=== PATIENT | male | born 1950 | race Caucasian/White ===

== ENCOUNTER 2016-12-23 15:33 | Emergency (ER) | payer MEDICARE ==
[~2016-12-23] VITALS: Ht 170.2 cm; Wt 82.0 kg
[~2016-12-23 15:33] MED LIST: CLON-352 PO; ENAL2.5; METO25 PO
[2016-12-23 15:40] VITALS: BP 155/95; PULSE 67; RESP 15; TEMP 98.4; O2SAT 97
--- NOTE | 2016-12-23 15:52 | PD ---
HPI . attacked by a hawk Chief Complaint: Skin Problem Time Seen by Provider: 15:52 Travel History International Travel<30 days: No Contact w/Intl Traveler<30days: No Traveled to known affect area: No History of Present Illness HPI 66-year-old male with past medical history of hypertension, coronary artery disease with stent placement here after being attacked by a hawk. Patient was walking by the [employer] and a hawk swooped down and scratched his head. He has about 3 scratches in his scalp. They are not actual puncture wounds. He is not up to date on his tetanus. He has no other complaints. [facility] Past Medical History Hypertension: Yes Past Surgical History Coronary Stent: Yes (2002) Social History Alcohol Use: Yes Tobacco Use: No Substance Use: No Allergies-Medications (Allergen,Severity, Reaction): Coded Allergies: No Known Allergies (Unverified , 12/23/16) Reported Meds & Prescriptions Reported Meds & Active Scripts Active Bactrim DS (Sulfamethoxazole-Trimethoprim) 800-160 Mg Tab 1 Tab PO BID Reported Fish Oil ([place]-3 Fatty Acids) 1,000 Mg Cap Amlodipine (Amlodipine Besylate) 5 Mg Tab 5 Mg PO DAILY [monopril] Plavix (Clopidogrel Bisulfate) 75 Mg Tab 75 Mg PO DAILY Clonidine (Clonidine HCl) 0.1 Mg Tab 0.1 Mg PO BID Enalapril (Enalapril Maleate) 5 Mg Tab 5 Mg PO DAILY Review of Systems General / Constitutional: No: Fever Eyes: No: Visual changes HENT: No: Headaches Cardiovascular: No: Chest Pain or Discomfort Respiratory: No: Shortness of Breath Gastrointestinal: No: Abdominal Pain Genitourinary: No: Dysuria Musculoskeletal: No: Pain Skin: Positive Other (scalp abrasions from hawk attack), No Rash Neurologic: No: Weakness Psychiatric: No: Depression Endocrine: No: Polydipsia Hematologic/Lymphatic: No: Easy Bruising Physical Exam Narrative GENERAL: AAO x 3, no acute distress, Well-nourished, well-developed patient. SKIN: Warm and dry. No visible rashes or bruising. 3 small abrasions to the scalp from hawk claws, clean without erythema. not actual puncture wounds HEAD: Normocephalic and atraumatic. EYES: No scleral icterus. No injection or drainage. ENT: No nasal drainage noted. Mucous membranes pink. Airway patent. NECK: Supple, trachea midline. No JVD. CARDIOVASCULAR: Regular rate and rhythm without murmurs, gallops, or rubs. RESPIRATORY: Breath sounds equal bilaterally. No accessory muscle use. No rhonchi or rales. GASTROINTESTINAL: Abdomen soft, non-tender, nondistended. EXTREMITIES: No cyanosis or edema. BACK: Nontender without obvious deformity. No CVA tenderness. PSYCH: AAO x 3, normal affect. Data Data Last Documented VS Vital Signs Date Time Temp Pulse Resp B/P Pulse Ox O2 Delivery O2 Flow Rate FiO2 12/23/16 15:40 98.4 67 15 155/95 97 Orders Tetanus/Diphtheria Tox Adult (Tetanus/Di (12/23/16 16:00) MDM Medical Decision Making Medical Screen Exam Complete: Yes Emergency Medical Condition: Yes Differential Diagnosis animal attack, scalp abrasion, less likely scalp laceration Narrative Course 66-year-old male with past medical history of hypertension, coronary artery disease with stent placement here after being attacked by a hawk. Patient was walking by the [employer] and a hawk swooped down and scratched his head. He has about 3 scratches in his scalp. They are not actual puncture wounds. He is not up to date on his tetanus. He has no other complaints. Patient seen and examined. Case discussed with Dr. Jimenez Recommend tetanus vaccine and Bactrim upon discharge. Advise follow-up if infection starts to present itself. Patient verbalized understanding of instructions, questions were answered, and thanked me for their care. I advised them if their condition worsens, please return to the nearest emergency room for further care. Diagnosis Primary Impression: Animal scratch Patient Instructions: Cellulitis (ED), General Instructions, Tetanus (ED) Additional Instructions: Please return to emergency department if your symptoms return or worsen. Follow up with your primary care provider. Take medications as prescribed. Continue to clean scalp with soap and water. If you notice any signs of infection which include redness, swelling, warmth, purulent drainage or streaking, please return to the Emergency department You may experience tenderness at the site of your tetanus injection, this is normal. Med/Other Pt SpecificInfo: Prescription(s) given Scripts Sulfamethoxazole-Trimethoprim (Bactrim DS)800-160 Mg Tab1 Tab PO BID #20 TAB Prov:Ambar Jimenez DO 12/23/16 Disposition: 01 DISCHARGE HOME Condition: Stable Malena Joyce Dec 23, 2016 15:52
[2016-12-23] MEDS ORDERED: CLON0.1T PO (15:56)
[2016-12-23] MEDS ORDERED: FISH1000 (15:56)
[2016-12-23] MEDS ORDERED: AMLO5TAB2 PO (15:56)
[2016-12-23] MEDS ORDERED: PLAV75TA29 PO (15:56)
[2016-12-23] MEDS ORDERED: ENAL5TAB PO (15:56)
[2016-12-23] MEDS ORDERED: MONOPRIL (15:56)
[2016-12-23] MEDS ORDERED: BACT800T5 PO (15:59)
[2016-12-23] MEDS ORDERED: TETANUS/DIPHTHERIA TOXOID ADULT 0.5 ML VIAL IM ONE (16:00)
== END 2016-12-23 16:21 | disposition home or self-care (01) ==
LOC: PHEFT 15:33
DX: S00.01XA Abrasion of scalp, initial encounter (principal); I10 Essential (primary) hypertension; I25.10 Atherosclerotic heart disease of native coronary artery without angina pectoris; Z23 Encounter for immunization; W61.92XA Struck by other birds, initial encounter; Y92.241 Library as the place of occurrence of the external cause
CPT/HCPCS: 90471; 90714